=== PATIENT | male | born 1955 | race African-American/Black ===

== ENCOUNTER 2021-02-27 16:34 | Emergency (ER) | payer SELFPAY | END 2021-02-27 16:58 | disposition home or self-care (01) | LOC: NAV ERS 16:34 | DX: T78.3XXA Angioneurotic edema, initial encounter (principal); I10 Essential (primary) hypertension; E78.00 Pure hypercholesterolemia, unspecified; Z87.891 Personal history of nicotine dependence; Z79.899 Other long term (current) drug therapy | CPT/HCPCS: 99283 ==

== ENCOUNTER 2022-01-18 16:17 | Emergency (ER) | payer SELFPAY ==
[2022-01-18] MEDS ORDERED: predniSONE 20 MG TAB ONE (16:50)
[2022-01-18] MEDS ORDERED: cefTRIAXone\\ROCEPHIN 1 GM VIAL ONE (17:36)
== END 2022-01-18 18:02 | disposition home or self-care (01) ==
LOC: NAV ERS 16:17
DX: J18.1 Lobar pneumonia, unspecified organism (principal); I10 Essential (primary) hypertension; E78.00 Pure hypercholesterolemia, unspecified; Z87.891 Personal history of nicotine dependence; Z79.899 Other long term (current) drug therapy
CPT/HCPCS: 71046; 96372; J0696; J7512; J7620

== ENCOUNTER 2022-01-26 12:29 | Emergency (ER) | payer SELFPAY | END 2022-01-26 14:18 | disposition home or self-care (01) | LOC: NAV ERS 12:29 | DX: J18.9 Pneumonia, unspecified organism (principal); I10 Essential (primary) hypertension; E78.00 Pure hypercholesterolemia, unspecified; Z87.891 Personal history of nicotine dependence; Z79.899 Other long term (current) drug therapy | CPT/HCPCS: 71046 ==

== ENCOUNTER 2024-09-21 07:52 | Emergency (ER) | payer MEDICARE, SELFPAY ==
[2024-09-21] MEDS ORDERED: Ibuprofen 800 MG TAB ONE (08:23)
== END 2024-09-21 09:38 | disposition home or self-care (01) ==
LOC: NAV ERS 07:52
DX: U07.1 COVID-19 (principal); I10 Essential (primary) hypertension; E78.5 Hyperlipidemia, unspecified; Z87.891 Personal history of nicotine dependence; Z79.899 Other long term (current) drug therapy
CPT/HCPCS: 87426; 99283

== ENCOUNTER 2024-10-29 08:35 | Emergency (ER) | payer MEDICARE ==
[2024-10-29] MEDS ORDERED: Ketorolac Tromethamine 30 MG (1 mL) VIAL ONE (09:07)
== END 2024-10-29 10:05 | disposition home or self-care (01) ==
LOC: NAV ERS 08:35
DX: S60.00XA Contusion of unspecified finger without damage to nail, initial encounter (principal); M54.50 Low back pain, unspecified; E78.00 Pure hypercholesterolemia, unspecified; I10 Essential (primary) hypertension; Z87.891 Personal history of nicotine dependence; Z79.899 Other long term (current) drug therapy; W23.2XXA Caught, crushed, jammed or pinched between a moving and stationary object, initial encounter
CPT/HCPCS: 73140; J1885; 96372; 99283